=== PATIENT | female | born 1985 | race Caucasian/White ===

== ENCOUNTER 2017-02-23 22:46 | Emergency (ER) | payer MEDICAID ==
[~2017-02-23] VITALS: Ht 157.5 cm; Wt 65.8 kg
[~2017-02-23 22:46] MED LIST: ALBUTEROL2 PUFFS/17 IN; AMOXIL500 M1 PO; AMOXIL500 MG PO; AZITHROMYCIN250 M1 PO; BENZONATATE200 MG PO; BUSPAR DIVIDOSE15 MG PO; CLARITIN 10MG T10 MG PO; DIFLUCAN100 MG PO; DOXYCYCLINE HY100 M3 PO; ELIMITE 5%60 GM/TUB1 TP; FLAGYL500 M1 PO; FLUTICASONE 50M16 GM; HYDROCORTISONE 1%1 % TP; IBUPROFEN400 MG PO; IRON TABLETS325 MG PO; KEFLEX 500MG.500 MG PO; KLONOPIN0.5 MG PO; LORATADINE 10MG10 M1 PO; MACROBID 100MG100 MG PO; MEDROL 4MG. DOSE4 MG PO; MIRALAX(PO17 GM/1 PA PO; MIRENA52 MG IU; MOBIC7.5 MG PO; MOTRIN600 MG PO; MUCINEX600 MG PO; PAXIL20 MG PO; PERCOCET 5/3251 EACH PO; PHENERGAN 25MG.25 M1 PO; PRE-NATAL1 TAB PO; PRENATAL PLUS1 TA1 PO; PRILOSEC40 MG PO; TESSALON PERLE200 MG PO; VISTARIL50 MG PO; ZYRTEC-D 12HR 51 TER PO
--- NOTE | 2017-02-23 23:12 | Emergency Room Report ---
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 N Clinical Suspician of Infection? N Mental Status: 1 - Regular (Normal Baseline) Sepsis Risk:Possible Sepsis Risk Have you (or family members/close friends) recently traveled outside the [place]? N If Yes, where/when: Have you had exposure to infectious disease within the past month? TB? Other? Specify: Source patient, RN notes reviewed, family, old records Exam Limitations no limitations Comment over the last few days has swollen tender lt vaginal area Cardiac Chest Pain Chest pain indicative of cardiac No Timing/Duration this evening Severity moderate ALLERGIES Coded Allergies: No Known Allergies (07/28/16) Home Medications Active Scripts POLYETHYLENE GLYCOL (Miralax) 17 GM PO DAILY #5 JADA Prov: 07/28/16 History Medical History General CAD? No Angina: No PR: No Hypertension? No Hyperlipidemia? No CHF? No DVT? No PE? No COPD? No Asthma? No Anemia? No GERD? No Gastric ulcers? No GI Bleed? No Hernia? No Thyroid Problems? No Hypothyroidism? No CVA? No Seizures? No Diabetes? No Renal Insuffiency? No End Stage Renal Disease? No UTI? Yes Stones? No GB Disease: Yes Nephritic Syndrome? No Asplenia? No Hepatitis? No Sickle Cell Disease? No Arthritis? No Migraines? No Cataracts? No Glaucoma? No MRSA? No HIV? No TB? No Anxiety? Yes Depression? No Cancer? 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 Respiratory denies cough, denies shortness of breath, denies wheezing Cardiovascular denies chest pain, denies syncope Gastrointestinal denies abdominal pain, denies diarrhea, denies vomiting Genitourinary see HPI. denies: dysuria, frequency, hesitancy, hematuria. Musculoskeletal denies back pain, denies joint pain, denies joint swelling, denies neck pain Skin see HPI, other Psychiatric/Neurological denies seizure Physical Exam Vital Signs Vital Signs Date Time Temp Pulse Resp B/P Pulse O2 O2 Flow FiO2 Ox Delivery Rate 02/24 0005 18 02/23 2334 98.7 107 20 138/88 100 02/23 2255 123 20 124/74 99 02/23 2250 98.7 124 20 100 - WBC >12,000 or <4,000 or 10% bands? 2 or more SIRS Criteria Met? B/P:138/88 MAP: Creatinine >2.0? UA output<0.5ml/kg/hr for 2 hrs? Platelet count >100,000? Lactate >2.0mmol/1? INR >1.2 or PTT > than 60 sec? Evidence of Organ Dysfunction? Provider documented clinical suspician of infection? N Sepsis Criteria Count: 2 Sepsis Risk: Possible Sepsis Risk General Appearance no apparent distress Eye Exam - bilateral eye PERRL, bilateral eye EOMI Ear, Nose, Throat normal ENT inspection Neck supple Respiratory Status No: respiratory distress. Cardiovascular regular rate/rhythm Peripheral Pulses Pulses normal Yes Gastrointestinal soft Extremities normal inspection Strength 4 Upper Ext (L), 4 Upper Ext (R), 4 Lower Ext (L), 4 Lower Ext (R) Pelvic swollen lt vulvar area Nurse present during exam? Yes Neurologic alert, head charrer II-XII nml as tested, no motor/sensory deficits Reflexes Reflexes normal No Mental status normal mood/affect Skin as above Medical Decision Making LABS/Meds/Orders Pt receiving controlled substance in ED? No Results/Orders Laboratory Tests 02/23/17 2330: Sodium 136, Potassium 3.5, Chloride 99, Carbon Dioxide 27, BUN 9, Creatinine 1.0 , Estimated Creat Clear 85, Estimated GFR (MDRD) 65, Glucose 122 H, Calcium 9.4 , Total Bilirubin 0.3, AST 15, ALT 19, Alkaline Phosphatase 97, Total Protein 8.5 H, Albumin 3.5, Globulin 5.0 H, Albumin/Globulin Ratio 0.7 L, WBC 10.1, RBC 4.12 L, Hgb 13.8, Hct 40.6, MCV 98.4 H, RDW 11.9, Plt Count 280, MPV 6.5 L, Gran % 72.9, Gran # 7.4, Lymphocytes % 19.2, Monocytes % 5.7, Eosinophils % 1.6, Basophils % 0.7, Lymphocytes # 1.9, Monocytes # 0.6, Eosinophils # 0.2, Basophils # 0.1, PUBS MCHC 34.1, MCH 33.6 H, Urine Color YELLOW, Urine Appearance CLEAR, Urine pH 8.0, Ur Specific [place] 1.015, Urine Protein TRACE H, Urine Ketones NEGATIVE, Urine Blood NEGATIVE, Urine Nitrate NEGATIVE, Urine Bilirubin NEGATIVE, Urine Urobilinogen 2.0, Ur Leukocyte Esterase NEGATIVE, Urine WBC 3-5, Ur Squamous Epith Cells 5-10, Urine Bacteria 1+, Urine Glucose NEGATIVE Current Medication Orders Sig/Alaina Start time Last Medication Dose Route Stop Time Status Admin Acetaminophen/ 1 JADA ONCE ONE 02/245 DC 02/24 Codeine Phosphate PO 02/24 0016 0004 Acetaminophen/ 0 .STK-MED ONE 02/24 0002 DC Codeine Phosphate PO Ceftriaxone Sodium 0 .STK-MED ONE 02/24 0000 DC IV Sodium Chloride 50 ML .STK-MED ONE 02/24 0000 DC IV Ketorolac 0 .STK-MED ONE 02/23 2359 DC Tromethamine .ROUTE Ceftriaxone Sodium 1 GM ONCE ONE 02/23 2345 DC 02/24 Sodium Chloride 50 ML IV 02/24 0014 0006 Ketorolac 30 MG ONCE ONE 02/23 2345 DC 02/24 Tromethamine IV 02/23 2346 0005 Sodium Chloride 10 ML PRN PRN 02/23 2315 AC IV 02/24 2313 Orders Procedure Date/time Status CULTURE, WOUND 02/24 0000 Active IV SALINE LOCK 02/23 2313 Active URINALYSIS/COMPLETE 02/24 2312 Complete URINE 02/24 2312 Complete COMPLETE METABOLIC PANEL 02/24 2312 Complete CBC WITH AUTO DIFF 02/24 2312 Complete Procedures Incision and Drainage Incision and Drainage Risks/benefits discussed with pt/guardian? Yes Problem type Abcess Location lt vaginal Size cm 3.0 Anesthesia Lidocaine 1% Blade Size 15 I & D Procedure Simple, betadine prep, sterile drapes applied, Scalpel incision cm-, Pus large amount, Cultured, Mult. loculations broken , Sterile Dressing Applied. no : Complex, Needle aspiration, Pus small amount, Dissection, Irrigation ml-, gauze wick placed, Packed. Departure Departure Time of Disposition 0036 Disposition DC Home or Self Care(routine) Clinical Impression Primary Impression: Vulval boil Condition STABLE Referrals Sharmin TIJERINA,Antonio Douglas Patient Instructions DI for Vulvar Abscess Additional Instructions use meds and see pcp for follow up Discharge Counseling Counseled pt/family regarding diagnosis, test results, medications/RX, follow up needs Prescriptions Current Visit Scripts CEPHALEXIN (Keflex 500MG Capsule) 500 MG PO Q8H #30 CAP ED Critical Care Critical Care No at 0044
--- NOTE | 2017-02-23 23:12 | Emergency Room Report ---
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 N Clinical Suspician of Infection? N Mental Status: 1 - Regular (Normal Baseline) Sepsis Risk:Possible Sepsis Risk Have you (or family members/close friends) recently traveled outside the [place]? N If Yes, where/when: Have you had exposure to infectious disease within the past month? TB? Other? Specify: Source patient, RN notes reviewed, family, old records Exam Limitations no limitations Comment over the last few days has swollen tender lt vaginal area Cardiac Chest Pain Chest pain indicative of cardiac No Timing/Duration this evening Severity moderate ALLERGIES Coded Allergies: No Known Allergies (07/28/16) Home Medications Active Scripts POLYETHYLENE GLYCOL (Miralax) 17 GM PO DAILY #5 JADA Prov: 07/28/16 History Medical History General CAD? No Angina: No HI: No Hypertension? No Hyperlipidemia? No CHF? No DVT? No PE? No COPD? No Asthma? No Anemia? No GERD? No Gastric ulcers? No GI Bleed? No Hernia? No Thyroid Problems? No Hypothyroidism? No CVA? No Seizures? No Diabetes? No Renal Insuffiency? No End Stage Renal Disease? No UTI? Yes Stones? No GB Disease: Yes Nephritic Syndrome? No Asplenia? No Hepatitis? No Sickle Cell Disease? No Arthritis? No Migraines? No Cataracts? No Glaucoma? No MRSA? No HIV? No TB? No Anxiety? Yes Depression? No Cancer? 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 Respiratory denies cough, denies shortness of breath, denies wheezing Cardiovascular denies chest pain, denies syncope Gastrointestinal denies abdominal pain, denies diarrhea, denies vomiting Genitourinary see HPI. denies: dysuria, frequency, hesitancy, hematuria. Musculoskeletal denies back pain, denies joint pain, denies joint swelling, denies neck pain Skin see HPI, other Psychiatric/Neurological denies seizure Physical Exam Vital Signs Vital Signs Date Time Temp Pulse Resp B/P Pulse O2 O2 Flow FiO2 Ox Delivery Rate 02/24 0005 18 02/23 2334 98.7 107 20 138/88 100 02/23 2255 123 20 124/74 99 02/23 2250 98.7 124 20 100 - WBC >12,000 or <4,000 or 10% bands? 2 or more SIRS Criteria Met? B/P:138/88 MAP: Creatinine >2.0? UA output<0.5ml/kg/hr for 2 hrs? Platelet count >100,000? Lactate >2.0mmol/1? INR >1.2 or PTT > than 60 sec? Evidence of Organ Dysfunction? Provider documented clinical suspician of infection? N Sepsis Criteria Count: 2 Sepsis Risk: Possible Sepsis Risk General Appearance no apparent distress Eye Exam - bilateral eye PERRL, bilateral eye EOMI Ear, Nose, Throat normal ENT inspection Neck supple Respiratory Status No: respiratory distress. Cardiovascular regular rate/rhythm Peripheral Pulses Pulses normal Yes Gastrointestinal soft Extremities normal inspection Strength 4 Upper Ext (L), 4 Upper Ext (R), 4 Lower Ext (L), 4 Lower Ext (R) Pelvic swollen lt vulvar area Nurse present during exam? Yes Neurologic alert, pressurised container filler II-XII nml as tested, no motor/sensory deficits Reflexes Reflexes normal No Mental status normal mood/affect Skin as above Medical Decision Making LABS/Meds/Orders Pt receiving controlled substance in ED? No Results/Orders Laboratory Tests 02/23/17 2330: Sodium 136, Potassium 3.5, Chloride 99, Carbon Dioxide 27, BUN 9, Creatinine 1.0 , Estimated Creat Clear 85, Estimated GFR (MDRD) 65, Glucose 122 H, Calcium 9.4 , Total Bilirubin 0.3, AST 15, ALT 19, Alkaline Phosphatase 97, Total Protein 8.5 H, Albumin 3.5, Globulin 5.0 H, Albumin/Globulin Ratio 0.7 L, WBC 10.1, RBC 4.12 L, Hgb 13.8, Hct 40.6, MCV 98.4 H, RDW 11.9, Plt Count 280, MPV 6.5 L, Gran % 72.9, Gran # 7.4, Lymphocytes % 19.2, Monocytes % 5.7, Eosinophils % 1.6, Basophils % 0.7, Lymphocytes # 1.9, Monocytes # 0.6, Eosinophils # 0.2, Basophils # 0.1, PUBS MCHC 34.1, MCH 33.6 H, Urine Color YELLOW, Urine Appearance CLEAR, Urine pH 8.0, Ur Specific [place] 1.015, Urine Protein TRACE H, Urine Ketones NEGATIVE, Urine Blood NEGATIVE, Urine Nitrate NEGATIVE, Urine Bilirubin NEGATIVE, Urine Urobilinogen 2.0, Ur Leukocyte Esterase NEGATIVE, Urine WBC 3-5, Ur Squamous Epith Cells 5-10, Urine Bacteria 1+, Urine Glucose NEGATIVE Current Medication Orders Sig/Alaina Start time Last Medication Dose Route Stop Time Status Admin Acetaminophen/ 1 JADA ONCE ONE 02/245 DC 02/24 Codeine Phosphate PO 02/24 0016 0004 Acetaminophen/ 0 .STK-MED ONE 02/24 0002 DC Codeine Phosphate PO Ceftriaxone Sodium 0 .STK-MED ONE 02/24 0000 DC IV Sodium Chloride 50 ML .STK-MED ONE 02/24 0000 DC IV Ketorolac 0 .STK-MED ONE 02/23 2359 DC Tromethamine .ROUTE Ceftriaxone Sodium 1 GM ONCE ONE 02/23 2345 DC 02/24 Sodium Chloride 50 ML IV 02/24 0014 0006 Ketorolac 30 MG ONCE ONE 02/23 2345 DC 02/24 Tromethamine IV 02/23 2346 0005 Sodium Chloride 10 ML PRN PRN 02/23 2315 AC IV 02/24 2313 Orders Procedure Date/time Status CULTURE, WOUND 02/24 0000 Active IV SALINE LOCK 02/23 2313 Active URINALYSIS/COMPLETE 02/24 2312 Complete URINE 02/24 2312 Complete COMPLETE METABOLIC PANEL 02/24 2312 Complete CBC WITH AUTO DIFF 02/24 2312 Complete Procedures Incision and Drainage Incision and Drainage Risks/benefits discussed with pt/guardian? Yes Problem type Abcess Location lt vaginal Size cm 3.0 Anesthesia Lidocaine 1% Blade Size 15 I & D Procedure Simple, betadine prep, sterile drapes applied, Scalpel incision cm-, Pus large amount, Cultured, Mult. loculations broken , Sterile Dressing Applied. no : Complex, Needle aspiration, Pus small amount, Dissection, Irrigation ml-, gauze wick placed, Packed. Departure Departure Time of Disposition 0036 Disposition DC Home or Self Care(routine) Clinical Impression Primary Impression: Vulval boil Condition STABLE Referrals Sharmin TIJERINA,Antonio Douglas Patient Instructions DI for Vulvar Abscess Additional Instructions use meds and see pcp for follow up Discharge Counseling Counseled pt/family regarding diagnosis, test results, medications/RX, follow up needs Prescriptions Current Visit Scripts CEPHALEXIN (Keflex 500MG Capsule) 500 MG PO Q8H #30 CAP ED Critical Care Critical Care No at 0044
[2017-02-23 23:49] LABS: HEMOGLOBIN 13.8 g/dL (12.2-16.2); LYMPH # 1.9 K/mm3 (0.7-4.5); LYMPH % 19.2 % (10-50.0)
[2017-02-24 00:12] LABS: URINE BILIRUBIN - DIPSTICK NEGATIVE (NEG); URINE BLOOD NEGATIVE (NEG)
[2017-02-24] MEDS ORDERED: KEFLEX 500MG.500 MG PO (00:40)
[2017-02-24 01:02] VITALS: BP 138/88
== END 2017-02-24 01:05 | disposition home or self-care (01) ==
LOC: ER 22:46
PROVIDERS: Emergency Medicine
PROC: 0H9AXZZ Drainage of Inguinal Skin, External Approach (ICD-10-PCS; principal; 2017-02-23)
DX: N76.4 Abscess of vulva (principal)